=== PATIENT | male | born 1970 | race Caucasian/White ===

== ENCOUNTER 2017-05-01 20:39 | Inpatient (IN) | payer OTHER ==
[~2017-05-01] VITALS: Ht 182.9 cm; Wt 151.4 kg
[2017-05-01 21:28] LABS: HEMATOCRIT 33.6 % (38.0-50.0); MCH 32.4 PG (29.0-34.0); MCHC 34.8 G/DL (30.0-36.0); MCV 93.1 FL (86-99); MEAN PLAT.VOLUME 10.1 uM^3 (9.0-12.4); PLATELET COUNT 190 K/uL (156-360); RBC DIS.WIDTH-SD 41.1 % (39-53); RED BLOOD COUNT 3.61 M/uL (4.00-5.50); WHITE BLOOD COUNT 6.5 K/uL (4.1-10.2)
[2017-05-01 21:37] LABS: CHLORIDE 105 mEq/L (99-109); POTASSIUM 2.7 mEq/L (3.7-5.4); SODIUM 143 mEq/L (136-147)
[2017-05-01 21:39] LABS: GLUCOSE 209 mg/dL (70-99)
[2017-05-01 21:40] LABS: ANION GAP 16 MEQ/L (2-14)
[2017-05-01 21:42] LABS: GFR ESTIMATE (CALCULATED) 13 mL/min/
[2017-05-01 21:43] LABS: UREA NITROGEN (BUN) 36 mg/dL (9-23)
[2017-05-01 21:49] LABS: TROP-I INTERPRETATION NEGATIVE; TROPONIN-I 0.04 ng/mL (0.0-0.30)
[2017-05-01 22:40] LABS: INTER. NORMALIZED RATIO 0.9; PROTHROMBIN TIME 10.2 SEC (10.2-12.9)
[2017-05-01 22:42] LABS: PTT 26.7 SEC (25-37)
[2017-05-01 23:07] LABS: TOTAL BILIRUBIN 0.3 mg/dL (0.0-1.0)
[2017-05-01 23:09] LABS: ALKALINE PHOSPHATASE 57 IU/L (3-129)
[2017-05-01 23:11] LABS: DIRECT BILIRUBIN 0.1 mg/dL (0.0-0.3)
[2017-05-01 23:23] LABS: ADD MIUA? YES; BILIRUBIN NEGATIVE; BLOOD NEGATIVE; COLOR YELLOW ((YELLOW)); GLUCOSE (STRIP) 50; KETONES NEGATIVE; LEUKOCYTES NEGATIVE; NITRITE NEGATIVE; PROTEIN (STRIP) >=500; SPECIFIC GRAVITY 1.012 (1.000-1.030); UROBILINOGEN 0.2 MG/DL (0.2-1.0)
[2017-05-01 23:26] LABS: BACTERIA NONE SEEN /HPF; EPITHELIAL CELLS RARE /HPF; MUCUS TRACE /LPF; RED BLOOD CELLS 0-5 /HPF (0-5); UCUL ADDED? NO; WHITE BLOOD CELLS 0-5 /HPF (0-5)
[2017-05-02] VITALS (7 sets, daily range): BP systolic 136–156; BP diastolic 80–95
[2017-05-02] MEDS ORDERED: PRAZOSIN HCL5 MG PO (00:11)
[2017-05-02] MEDS ORDERED: CALCITRIOL0.5 MCG PO (00:11)
[2017-05-02] MEDS ORDERED: NIFEDIPINE ER30 MG PO (00:12)
[2017-05-02] MEDS ORDERED: LOSARTAN POTAS100 MG PO (00:12)
[2017-05-02] MEDS ORDERED: HYDROCHLOROTHIA25 MG PO (00:12)
[2017-05-02] MEDS ORDERED: LABETALOL HCL200 MG PO (00:12)
[2017-05-02 06:28] LABS: TROP-I INTERPRETATION NEGATIVE; TROPONIN-I 0.04 ng/mL (0.0-0.30)
[2017-05-02 07:54] LABS: ANION GAP 12 MEQ/L (2-14); CHLORIDE 107 MEQ/L (99-109); POTASSIUM 2.8 MEQ/L (3.7-5.4); SAMPLE HEMOLYSIS CHECK 0; SAMPLE ICTERIC CHECK 0; SAMPLE LIPEMIA CHECK 0; SODIUM 141 MEQ/L (136-147)
[2017-05-02 07:59] LABS: GFR ESTIMATE (CALCULATED) 14 mL/min/; UREA NITROGEN (BUN) 38 mg/dL (9-23)
[2017-05-02 08:00] LABS: GLUCOSE 97 mg/dL (70-99)
[2017-05-02 08:20] LABS: INTACT PARATHYROID HORMONE 253 pg/mL (10-69)
[2017-05-02 08:28] LABS: MAGNESIUM 2.1 mg/dl (1.3-2.7)
[2017-05-02 13:19] LABS: TROP-I INTERPRETATION NEGATIVE; TROPONIN-I 0.03 ng/mL (0.0-0.30)
[2017-05-03 04:51] VITALS: BP 133/79
[2017-05-03 06:46] LABS: HEMATOCRIT 32.9 % (38.0-50.0); MCH 33.5 PG (29.0-34.0); MCV 95.9 FL (86-99); MEAN PLAT.VOLUME 10.4 uM^3 (9.0-12.4); NRBC (%) 0.3 /100 WBC (0-0); PLATELET COUNT 155 K/uL (156-360); RBC DIS.WIDTH-CV 12.3 % (11.8-14.6); RED BLOOD COUNT 3.43 M/uL (4.00-5.50); WHITE BLOOD COUNT 5.8 K/uL (4.1-10.2)
[2017-05-03 07:22] LABS: ANION GAP 10 MEQ/L (2-14); CHLORIDE 110 MEQ/L (99-109); GFR ESTIMATE (CALCULATED) 15 mL/min/; GLUCOSE 94 mg/dL (70-99); POTASSIUM 3.6 MEQ/L (3.7-5.4); SAMPLE HEMOLYSIS CHECK 0; SAMPLE ICTERIC CHECK 0; SAMPLE LIPEMIA CHECK 0; SODIUM 142 MEQ/L (136-147); UREA NITROGEN (BUN) 35 mg/dL (9-23)
[2017-05-03 08:26] VITALS: BP 161/97
[2017-05-03 16:25] VITALS: BP 150/93
[2017-05-03 19:24] LABS: TROP-I INTERPRETATION NEGATIVE; TROPONIN-I 0.04 ng/mL (0.0-0.30)
[2017-05-03 20:55] VITALS: BP 160/99
[2017-05-04 01:19] LABS: TROP-I INTERPRETATION NEGATIVE; TROPONIN-I 0.03 ng/mL (0.0-0.30)
[2017-05-04 06:14] VITALS: BP 121/72
[2017-05-04 06:18] LABS: HEMATOCRIT 31.8 % (38.0-50.0); MCH 33.3 PG (29.0-34.0); MCHC 34.6 G/DL (30.0-36.0); MCV 96.4 FL (86-99); MEAN PLAT.VOLUME 10.3 uM^3 (9.0-12.4); PLATELET COUNT 157 K/uL (156-360); RBC DIS.WIDTH-CV 12.3 % (11.8-14.6); RBC DIS.WIDTH-SD 42.7 % (39-53); WHITE BLOOD COUNT 6.1 K/uL (4.1-10.2)
[2017-05-04 06:56] LABS: TROP-I INTERPRETATION NEGATIVE; TROPONIN-I 0.02 ng/mL (0.0-0.30)
[2017-05-04 07:34] LABS: ANION GAP 16 MEQ/L (2-14); CHLORIDE 108 MEQ/L (99-109); GFR ESTIMATE (CALCULATED) 15 mL/min/; GLUCOSE 90 mg/dL (70-99); POTASSIUM 3.4 MEQ/L (3.7-5.4); SAMPLE HEMOLYSIS CHECK 0; SAMPLE ICTERIC CHECK 0; SAMPLE LIPEMIA CHECK 0; SODIUM 141 MEQ/L (136-147); UREA NITROGEN (BUN) 35 mg/dL (9-23)
[2017-05-04 11:27] VITALS: BP 136/90
[2017-05-04 15:14] VITALS: BP 138/92
[2017-05-05 00:14] VITALS: BP 108/71
[2017-05-05 06:41] LABS: HEMATOCRIT 32.6 % (38.0-50.0); MCHC 33.7 G/DL (30.0-36.0); MCV 94.8 FL (86-99); MEAN PLAT.VOLUME 10.2 uM^3 (9.0-12.4); PLATELET COUNT 183 K/uL (156-360); RBC DIS.WIDTH-CV 12.2 % (11.8-14.6); RBC DIS.WIDTH-SD 42.2 % (39-53); RED BLOOD COUNT 3.44 M/uL (4.00-5.50); WHITE BLOOD COUNT 6.1 K/uL (4.1-10.2)
[2017-05-05 07:00] LABS: ANION GAP 11 MEQ/L (2-14); CHLORIDE 109 MEQ/L (99-109); GFR ESTIMATE (CALCULATED) 14 mL/min/; GLUCOSE 90 mg/dL (70-99); POTASSIUM 3.2 MEQ/L (3.7-5.4); SAMPLE HEMOLYSIS CHECK 0; SAMPLE ICTERIC CHECK 0; SAMPLE LIPEMIA CHECK 0; SODIUM 141 MEQ/L (136-147); UREA NITROGEN (BUN) 36 mg/dL (9-23)
[2017-05-05 07:35] VITALS: BP 129/82
[2017-05-05 11:12] VITALS: BP 12/83
[2017-05-05] MEDS ORDERED: AMOX TR-K CLV1 EAC3 PO (14:02)
[2017-05-05] MEDS ORDERED: GUAIFENESI100 MG/5 M PO ×2 (14:02→14:03)
[2017-05-08 14:23] LABS: Neutrophil Cytoplasmic Aby Negative (Negative)
== END 2017-05-05 16:53 | disposition home or self-care (01) | DRG 202 ==
LOC: EME 20:39 → EDOF 05-02 00:19 → 5WEST 05-02 02:08 → 3EAST 05-02 09:34 → 5WEST 05-02 09:34 → 3EAST 05-02 14:11
PROVIDERS: Emergency Medicine; Hospitalist; Internal Medicine Nephrology
PROC: 5A09357 Assistance with Respiratory Ventilation, Less than 24 Consecutive Hours, Continuous Positive Airway Pressure (ICD-10-PCS; principal; 2017-05-03)
DX: J20.9 Acute bronchitis, unspecified (principal); N17.9 Acute kidney failure, unspecified; R04.2 Hemoptysis; E87.6 Hypokalemia; R55 Syncope and collapse; R07.89 Other chest pain; I12.9 Hypertensive chronic kidney disease with stage 1 through stage 4 chronic kidney disease, or unspecified chronic kidney disease; N18.4 Chronic kidney disease, stage 4 (severe); D63.1 Anemia in chronic kidney disease; R60.0 Localized edema; I73.9 Peripheral vascular disease, unspecified; I89.0 Lymphedema, not elsewhere classified; F17.210 Nicotine dependence, cigarettes, uncomplicated; E66.9 Obesity, unspecified; Z68.42 Body mass index [BMI] 45.0-49.9, adult; Z82.49 Family history of ischemic heart disease and other diseases of the circulatory system; Z83.3 Family history of diabetes mellitus
CPT/HCPCS: 70450; 71010; 71020; 71250; 76770; 78582; 80048; 80069; 80076; 81003; 82140; 83735; 83880; 83930; 83935; 83970; 84132 91; 84300; 84484; 85027; 85379; 85610; 85651; 85730; 86021 90; 86900; 86901; 87070; 87205; 93005; 93970; 94660; 99281; 99285; A9540; A9567; J1956; J2270; J3480; J7030

== ENCOUNTER 2018-03-14 16:34 | Inpatient (IN) | payer OTHER ==
[~2018-03-14] VITALS: Ht 182.9 cm; Wt 143.8 kg
[~2018-03-14 16:34] MED LIST: AMOX TR-K CLV1 EAC3 PO; CALCITRIOL0.5 MCG PO; GUAIFENESI100 MG/5 M PO; HYDROCHLOROTHIA25 MG PO; LABETALOL HCL200 MG PO; LOSARTAN POTAS100 MG PO; NIFEDIPINE ER30 MG PO; PRAZOSIN HCL5 MG PO
[2018-03-14 17:05] LABS: HEMATOCRIT 23.8 % (38.0-50.0); HEMOGLOBIN 8.6 G/DL (12.5-16.6); MCH 32.1 PG (29.0-34.0); MCHC 36.1 G/DL (30.0-36.0); MCV 88.8 FL (86-99); PLATELET COUNT 143 K/uL (156-360); RBC DIS.WIDTH-CV 12.8 % (11.8-14.6); RBC DIS.WIDTH-SD 41.3 % (39-53); RED BLOOD COUNT 2.68 M/uL (4.00-5.50); WHITE BLOOD COUNT 7.8 K/uL (4.1-10.2)
[2018-03-14 17:15] LABS: CHLORIDE 100 mEq/L (99-109); SODIUM 133 mEq/L (136-147)
[2018-03-14 17:16] LABS: GLUCOSE 157 mg/dL (70-99)
[2018-03-14 17:20] LABS: GFR ESTIMATE (CALCULATED) 3 mL/min/ (58.99-99999)
[2018-03-14 17:27] LABS: TROP-I INTERPRETATION NEGATIVE; TROPONIN-I 0.13 ng/mL (0.0-0.30)
[2018-03-14 17:30] LABS: UREA NITROGEN (BUN) 115 mg/dL (9-23)
[2018-03-14 18:17] LABS: BASE EXCESS -10.6 mEq/L (-3 to +3); BICARBONATE 13.8 mEq/L (22-26); CARBOXY HGB 2.2 % (0-5); METHEMOGLOBIN 0.7 % (0-1.5); PCO2 25 mm Hg (35-45); PO2 68 mm Hg (80-100); pH 7.35 (7.35-7.45)
[2018-03-14 18:18] LABS: COMMENTS - BLOOD GASES A+C+; DEVICE RA; SITE RB; TOTAL RESP RATE 22 resp/min
[2018-03-14] MEDS ORDERED: POTASSIUM-9999 MG PO (18:34)
[2018-03-14 19:41] LABS: IRON 22 MCG/DL (35-150); TRANSFERRIN (TIBC) 189.4 mg/dL (215-380); TRANSFERRIN SATUR. 12 % (20-55)
[2018-03-14 21:29] VITALS: BP 146/97
[2018-03-14 22:00] VITALS: BP 150/94
[2018-03-14 23:00] VITALS: BP 144/80
[2018-03-15] VITALS (13 sets, daily range): BP systolic 106–138; BP diastolic 65–89
[2018-03-15 06:03] LABS: HEMATOCRIT 22.5 % (38.0-50.0); HEMOGLOBIN 7.9 G/DL (12.5-16.6); INTER. NORMALIZED RATIO 1.3; MCH 31.2 PG (29.0-34.0); MCHC 35.1 G/DL (30.0-36.0); MCV 88.9 FL (86-99); PLATELET COUNT 142 K/uL (156-360); RBC DIS.WIDTH-CV 12.7 % (11.8-14.6); RBC DIS.WIDTH-SD 41.6 % (39-53); RED BLOOD COUNT 2.53 M/uL (4.00-5.50); WHITE BLOOD COUNT 9.8 K/uL (4.1-10.2)
[2018-03-15 06:35] LABS: ALBUMIN 2.9 G/DL (3.2-4.8); CHLORIDE 100 MEQ/L (99-109); CREATININE 16.1 MG/DL (0.6-1.3); GFR ESTIMATE (CALCULATED) 3 mL/min/ (58.99-99999); PHOSPHORUS 10.7 mg/dL (2.5-4.9); POTASSIUM 2.9 MEQ/L (3.7-5.4); SODIUM 135 MEQ/L (136-147)
[2018-03-15 06:38] LABS: GLUCOSE 107 mg/dL (70-99); UREA NITROGEN (BUN) 116 mg/dL (9-23)
[2018-03-15 10:50] LABS: ANTI-HEPATITIS B CORE (TOTAL) Nonreactive
[2018-03-15 14:00] LABS: HEPATITIS B SURFACE ANTIBODY Nonreactive; HEPATITIS B SURFACE ANTIGEN Nonreactive; HEPATITIS C ANTIBODY Nonreactive
[2018-03-16] VITALS (7 sets, daily range): BP systolic 116–140; BP diastolic 68–88
[2018-03-16 00:13] LABS: CHLORIDE 97 mEq/L (99-109); POTASSIUM 2.6 mEq/L (3.7-5.4); SODIUM 136 mEq/L (136-147)
[2018-03-16 00:20] LABS: GLUCOSE 109 mg/dL (70-99)
[2018-03-16 00:25] LABS: UREA NITROGEN (BUN) 93 mg/dL (9-23)
[2018-03-16 00:31] LABS: GFR ESTIMATE (CALCULATED) 5 mL/min/ (58.99-99999)
[2018-03-16 05:34] LABS: ALBUMIN 3.5 g/dL (3.2-4.8); CHLORIDE 98 mEq/L (99-109); SODIUM 136 mEq/L (136-147)
[2018-03-16 05:36] LABS: GLUCOSE 105 mg/dL (70-99)
[2018-03-16 05:39] LABS: PHOSPHORUS 8.2 mg/dL (2.5-4.9)
[2018-03-16 05:40] LABS: CREATININE 12.7 mg/dL (0.6-1.3); GFR ESTIMATE (CALCULATED) 5 mL/min/ (58.99-99999)
[2018-03-16 05:41] LABS: UREA NITROGEN (BUN) 97 mg/dL (9-23)
[2018-03-16 11:06] LABS: BASOPHIL (%) 0.2 % (0-1); EOSINOPHIL (%) 0.7 % (0-5); EOSINOPHIL COUNT 0.1 K/uL (0-0.3); HEMATOCRIT 22.5 % (38.0-50.0); IMMATURE GRANULOCYTE (%) 0.4 % (0.0-0.7); LYMPHOCYTE (%) 7.7 % (15-42); LYMPHOCYTE COUNT 0.6 K/uL (1.0-2.8); MCH 32.3 PG (29.0-34.0); MCHC 35.6 G/DL (30.0-36.0); MCV 90.7 FL (86-99); MONOCYTE (%) 6.3 % (3-12); MONOCYTE COUNT 0.5 K/uL (0-0.8); NEUTROPHIL (%) 84.7 % (45-76); PLATELET COUNT 148 K/uL (156-360); RBC DIS.WIDTH-SD 42.6 % (39-53); RED BLOOD COUNT 2.48 M/uL (4.00-5.50); WHITE BLOOD COUNT 8.2 K/uL (4.1-10.2)
[2018-03-16 11:28] LABS: ALBUMIN 3.2 G/DL (3.2-4.8); CHLORIDE 98 MEQ/L (99-109); CREATININE 12.4 MG/DL (0.6-1.3); GFR ESTIMATE (CALCULATED) 5 mL/min/ (58.99-99999); GLUCOSE 149 mg/dL (70-99); PHOSPHORUS 7.9 mg/dL (2.5-4.9); POTASSIUM 3.3 MEQ/L (3.7-5.4); SODIUM 136 MEQ/L (136-147); UREA NITROGEN (BUN) 93 mg/dL (9-23)
[2018-03-17 07:30] VITALS: BP 123/73
[2018-03-17 07:30] LABS: BASOPHIL (%) 0.7 % (0-1); EOSINOPHIL (%) 2.8 % (0-5); EOSINOPHIL COUNT 0.2 K/uL (0-0.3); HEMATOCRIT 23.6 % (38.0-50.0); HEMOGLOBIN 8.2 G/DL (12.5-16.6); IMMATURE GRANULOCYTE (%) 0.5 % (0.0-0.7); LYMPHOCYTE (%) 15.8 % (15-42); MCH 31.8 PG (29.0-34.0); MCHC 34.7 G/DL (30.0-36.0); MCV 91.5 FL (86-99); MONOCYTE COUNT 0.7 K/uL (0-0.8); NEUTROPHIL (%) 69.2 % (45-76); NEUTROPHIL COUNT 4.2 K/uL (1.8-6.4); PLATELET COUNT 177 K/uL (156-360); RBC DIS.WIDTH-CV 12.8 % (11.8-14.6); RED BLOOD COUNT 2.58 M/uL (4.00-5.50)
[2018-03-17 08:04] LABS: ALBUMIN 3.6 G/DL (3.2-4.8); ALKALINE PHOSPHATASE 46 IU/L (3-129); ALT (GPT) 19 IU/L (3-49); AST (GOT) 19 IU/L (2-34); CHLORIDE 96 MEQ/L (99-109); GFR ESTIMATE (CALCULATED) 6 mL/min/ (58.99-99999); SODIUM 136 MEQ/L (136-147); TOTAL BILIRUBIN 0.5 MG/DL (0.0-1.0); TOTAL PROTEIN 6.6 G/DL (6.4-8.3); UREA NITROGEN (BUN) 69 mg/dL (9-23)
[2018-03-17 08:05] LABS: GLUCOSE 96 mg/dL (70-99)
[2018-03-17 17:35] VITALS: BP 127/70
[2018-03-17 20:19] VITALS: BP 114/58
[2018-03-18 00:34] VITALS: BP 111/68
[2018-03-18 06:48] LABS: BASOPHIL (%) 0.5 % (0-1); EOSINOPHIL (%) 4.5 % (0-5); EOSINOPHIL COUNT 0.3 K/uL (0-0.3); HEMATOCRIT 24.3 % (38.0-50.0); HEMOGLOBIN 8.1 G/DL (12.5-16.6); IMMATURE GRANULOCYTE (%) 0.5 % (0.0-0.7); LYMPHOCYTE (%) 15.6 % (15-42); LYMPHOCYTE COUNT 0.9 K/uL (1.0-2.8); MCH 31.3 PG (29.0-34.0); MCHC 33.3 G/DL (30.0-36.0); MCV 93.8 FL (86-99); MONOCYTE (%) 10.4 % (3-12); MONOCYTE COUNT 0.6 K/uL (0-0.8); NEUTROPHIL (%) 68.5 % (45-76); NEUTROPHIL COUNT 4.1 K/uL (1.8-6.4); PLATELET COUNT 182 K/uL (156-360); RBC DIS.WIDTH-CV 12.9 % (11.8-14.6); RBC DIS.WIDTH-SD 43.8 % (39-53); RED BLOOD COUNT 2.59 M/uL (4.00-5.50)
[2018-03-18 07:20] VITALS: BP 123/80
[2018-03-18 07:25] LABS: ALBUMIN 3.4 G/DL (3.2-4.8); CHLORIDE 96 MEQ/L (99-109); GLUCOSE 112 mg/dL (70-99); PHOSPHORUS 5.2 mg/dL (2.5-4.9); POTASSIUM 3.5 MEQ/L (3.7-5.4); SODIUM 137 MEQ/L (136-147); UREA NITROGEN (BUN) 46 mg/dL (9-23)
[2018-03-18 07:26] LABS: CREATININE 7.7 MG/DL (0.6-1.3); GFR ESTIMATE (CALCULATED) 8 mL/min/ (58.99-99999)
[2018-03-18 16:13] VITALS: BP 156/87
[2018-03-18 23:22] VITALS: BP 136/87
[2018-03-19 07:10] VITALS: BP 146/87
[2018-03-19 09:12] LABS: BASOPHIL COUNT 0.1 K/uL (0-0.1); EOSINOPHIL (%) 4.6 % (0-5); EOSINOPHIL COUNT 0.3 K/uL (0-0.3); HEMATOCRIT 23.5 % (38.0-50.0); IMMATURE GRANULOCYTE (%) 0.7 % (0.0-0.7); LYMPHOCYTE (%) 20.6 % (15-42); LYMPHOCYTE COUNT 1.3 K/uL (1.0-2.8); MCH 32.1 PG (29.0-34.0); MCV 94.4 FL (86-99); MONOCYTE (%) 10.1 % (3-12); MONOCYTE COUNT 0.6 K/uL (0-0.8); NEUTROPHIL COUNT 3.9 K/uL (1.8-6.4); PLATELET COUNT 191 K/uL (156-360); RBC DIS.WIDTH-CV 12.8 % (11.8-14.6); RBC DIS.WIDTH-SD 43.9 % (39-53); RED BLOOD COUNT 2.49 M/uL (4.00-5.50); WHITE BLOOD COUNT 6.1 K/uL (4.1-10.2)
[2018-03-19 09:40] LABS: ALBUMIN 3.4 G/DL (3.2-4.8); CHLORIDE 98 MEQ/L (99-109); GFR ESTIMATE (CALCULATED) 6 mL/min/ (58.99-99999); GLUCOSE 106 mg/dL (70-99); PHOSPHORUS 6.3 mg/dL (2.5-4.9); POTASSIUM 3.3 MEQ/L (3.7-5.4); SODIUM 137 MEQ/L (136-147); UREA NITROGEN (BUN) 54 mg/dL (9-23)
[2018-03-19 09:41] LABS: CREATININE 9.6 MG/DL (0.6-1.3)
[2018-03-19] MEDS ORDERED: CALCIUM ACETAT667 MG PO (12:53)
[2018-03-19 13:12] VITALS: BP 122/67
== END 2018-03-19 14:23 | disposition home or self-care (01) | DRG 291 ==
LOC: EME 16:34 → EDOF 20:47 → 4WEST 20:47 → 5EAST 20:47 → ENRESERV 20:47 → 4WEST 21:19 → ENRESERV 03-16 18:23 → 5EAST 03-16 22:30 → ENPENDDIS 03-19 → 5EAST 03-19 14:23
PROVIDERS: Emergency Medicine; Internal Medicine Critical Care Medicine; Internal Medicine Nephrology; Surgery
PROC: 5A1D70Z Performance of Urinary Filtration, Intermittent, Less than 6 Hours Per Day (ICD-10-PCS; principal; 2018-03-15)
PROC: 02HV33Z Insertion of Infusion Device into Superior Vena Cava, Percutaneous Approach (ICD-10-PCS; principal; 2018-03-15)
PROC: 02HV33Z Insertion of Infusion Device into Superior Vena Cava, Percutaneous Approach (ICD-10-PCS; 2018-03-17)
DX: I13.2 Hypertensive heart and chronic kidney disease with heart failure and with stage 5 chronic kidney disease, or end stage renal disease (principal); N18.6 End stage renal disease; I50.9 Heart failure, unspecified; E87.2 Acidosis; E87.6 Hypokalemia; E83.51 Hypocalcemia; E83.39 Other disorders of phosphorus metabolism; N25.81 Secondary hyperparathyroidism of renal origin; D63.1 Anemia in chronic kidney disease; K21.9 Gastro-esophageal reflux disease without esophagitis; G43.909 Migraine, unspecified, not intractable, without status migrainosus; E66.9 Obesity, unspecified; Z68.41 Body mass index [BMI] 40.0-44.9, adult; Z86.73 Personal history of transient ischemic attack (TIA), and cerebral infarction without residual deficits; Z87.891 Personal history of nicotine dependence
CPT/HCPCS: 36600; 71045; 71046; 76770; 80048; 80048 91; 80053; 80069; 82570; 82803; 83540; 83880; 84100; 84156; 84466; 84484; 85025; 85027; 85610; 86704; 86706; 86803; 87340; 87641; 93005; 93306; 94002; 94003; 94660; 94760; 94799; 99281; 99285; C1750; C1788; J0690; J0881; J1644; J1940; J2250; J3010; J3475; J3480; P9047; S0020